=== PATIENT | female | born 1985 | race Caucasian/White ===

== ENCOUNTER 2019-11-24 16:24 | Emergency (ER) | payer OTHER, SELFPAY ==
[2019-11-24 16:28] VITALS: BP 117/77; PULSE 85; RESP 16; TEMP 36.2; O2SAT 98
--- NOTE | 2019-11-24 17:50 | ED.EAR ---
HPI - Ear Problem General Chief complaint: Ear Stated complaint: Ear pain Time Seen by Provider: 11/24/19 17:26 Source: patient Mode of arrival: ambulatory Limitations: no limitations History of Present Illness HPI Narrative: This is a 34 year old female that presents to the ER for bilateral ear irritation x 1 week. Reports itching and abnormal drainage from the ear. Denies any other cold symptoms. Denies fever or erythema. Related Data Allergies Allergy/AdvReac Type Severity Reaction Status Date / Time No Known Allergies Allergy Verified 04/04/19 14:37 Review of Systems Review of Systems: Narrative: CONSTITUTIONAL: Denies fever ENT: Report otalgia. Denies rhinorrhea, congestion, sore throat RESPIRATORY: Denies cough or dyspnea. SKIN: Reports itching. All systems reviewed & are unremarkable except as noted in HPI and below PMFSH Surgical History Surgical History (Updated 11/24/19 @ 17:58 by Tamika Boothe PA-C) History of Family History Family History (Updated 05/02/16 @ 23:21 by DOCTOR UNKNOWN) Sibling Patient's sister is in good health Father Patient's father is Social History Social History (Updated 11/24/19 @ 17:58 by Tamika Boothe PA-C) Smoking status: Current every day smoker Alcohol intake: never Exam Narrative: Exam Narrative: GENERAL: Well-appearing, well-nourished, and in no acute distress. HEAD: Normocephalic, atraumatic. EYES: EOMI. ENT: Nares clear, no rhinorrhea or epistaxis. Mucous membranes moist. Oropharynx without tonsillar hypertrophy exudate or other lesions. Bilateral TMs pearly monreal non-bulging. Bilateral external auditory canals with mild redness and irritation. NECK: Supple. No adenopathy or masses. CHEST: Clear to auscultation. No respiratory distress. No wheezes rales or rhonchi HEART: Regular rate and rhythm. No murmur heard. Normal peripheral pulses. EXTREMITIES: Normal range of motion. No edema. SKIN: Warm, dry, no rash. NEURO: No focal deficits. Alert and oriented x3. PSYCH: Normal mood and affect Course Vital Signs Vital signs: Vital Signs Temperature 97.2 F L 11/24/19 16:28 Pulse Rate 85 11/24/19 16:28 Respiratory Rate 16 11/24/19 16:28 Blood Pressure 117/77 11/24/19 16:28 Pulse Oximetry 98 11/24/19 16:28 Temperature 97.2 F L 11/24/19 16:28 Pulse Rate 85 11/24/19 16:28 Respiratory Rate 16 11/24/19 16:28 Blood Pressure 117/77 11/24/19 16:28 Pulse Oximetry 98 11/24/19 16:28 Medical Decision Making MDM Narrative Medical decision making narrative: Patient presents to the ER for bilateral ear drainage, irritation and itching. She is afebrile and nontoxic appearing. Bilateral external ear canals with mild irritation. She will be started on acetic acid-hydrocortisone drops. She is to follow-up with primary care doctor. She was given warnings to return to the ER Vital Signs Vital Signs: Vital Signs Temperature 97.2 F L 11/24/19 16:28 Pulse Rate 85 11/24/19 16:28 Respiratory Rate 16 11/24/19 16:28 Blood Pressure 117/77 11/24/19 16:28 Pulse Oximetry 98 11/24/19 16:28 Temperature 97.2 F L 11/24/19 16:28 Pulse Rate 85 11/24/19 16:28 Respiratory Rate 16 11/24/19 16:28 Blood Pressure 117/77 11/24/19 16:28 Pulse Oximetry 98 11/24/19 16:28 Critical Care Time Critical Care Time Critical Care Time: No Discharge Plan Discharge Clinical Impression: Otitis externa Qualifiers: Otitis externa type: unspecified type Chronicity: acute Laterality: bilateral Qualified Code(s): H60.503 - Unspecified acute noninfective otitis externa, bilateral Patient Disposition: Home, Self-Care Condition: Stable Instructions: Otitis Externa (ED) Additional Instructions: Return to the emergency department if you experience fever, increasing pain of your ears, swelling of your ears, or any other symptoms that are concerning to you Apply eardrops as prescribed.
== END 2019-11-24 18:00 | disposition home or self-care (01) ==
PROVIDERS: Emergency Provider Emergency Medicine
DX: H60.503 Unspecified acute noninfective otitis externa, bilateral (principal)
CPT/HCPCS: 99283

== ENCOUNTER 2020-09-12 15:52 | Outpatient (CLI) | payer OTHER, SELFPAY ==
--- NOTE | ~2020-09-12 | US_ITS ---
EXAMINATION: US OB <= 14 weeks fetus DATE: 09/12/2020 16:37 INDICATION: First trimester dating TECHNIQUE: Real-time pelvic transabdominal and transvaginal ultrasound was performed. COMPARISON: None. FINDINGS: The uterus measures 10.7 x 5.8 x 7.9 cm. There is an intrauterine gestational sac. A yolk sac is identified. heart motion is identified measuring 163 beats per minute (bpm) by M-mode Do ppler. The crown rump length measures 1.4 cm , which correlates with an estimated gestational a ge of 7 weeks and 5 day(s) (+/-) 5 day(s). The right ovary measures 3.1 x 1.6 x 1.4 cm. The left ovary measures 2.9 x 2.4 x 2.6 cm. There is nor mal vascular flow in the ovaries. There is no free fluid in the pelvis. IMPRESSION: 1. Live intrauterine with an estimated gestational age of 7 weeks and 5 day(s) (+/-) 5 day( s) and an estimated delivery date of 04/26/2021. Reviewed, dictated and finalized at location [facility] IMPRESSION: 1. Live intrauterine with an estimated gestational age of 7 weeks and 5 day(s) (+/-) 5 day(s) and an estimated delivery date of 04/26/2021.
== END 2020-09-12 15:53 | disposition home or self-care (01) ==
PROVIDERS: Visit Provider Obstetrics & Gynecology
DX: Z34.90 Encounter for supervision of normal pregnancy, unspecified, unspecified trimester (principal); Z3A.01 Less than 8 weeks gestation of pregnancy
CPT/HCPCS: 76801

== ENCOUNTER 2021-04-17 11:50 | Inpatient (IN) | payer OTHER, SELFPAY ==
[2021-04-17] VITALS (52 sets, daily range): BP systolic 78–149; BP diastolic 40–126; PULSE 56–108; RESP 12–20; TEMP 36.2–36.3; O2SAT 85–100; BMI 31.1
[2021-04-17 12:15] LABS: Basophils Percent Auto 0.2 % (0.2-1.2); Eosinophils Percent Auto 0.3 % (0-4.4); Hematocrit 38.9 % (37.0-47.0); Hemoglobin 13.2 g/dL (12.0-15.0); Immature Granulocyte Absolute 0.04 K/mm3 (0.00-0.031); Immature Granulocyte Percent A 0.3 % (0-0.5); Lymphocytes Absolute Auto 2.24 K/mm3 (0.9-3.2); Lymphocytes Percent Auto 19.1 % (18.3-44.2); Mean Corpuscular HGB Conc 33.9 g/dl (32-36); Mean Corpuscular Hemoglobin 31.7 pg (26-34); Mean Corpuscular Volume 93.5 fl (80-100); Mean Platelet Volume 11.1 fl (7.4-10.4); Monocytes Absolute Auto 0.7 K/mm3 (0.1-0.6); Monocytes Percent Auto 6.1 % (2.6-8.5); Neutrophils Absolute Auto 8.7 K/mm3 (1.3-6.7); Platelet Count Result 238 k/mm3 (150-375); Red Blood Count 4.16 M/mm3 (4.2-5.4); Red Cell Distribution Width 13.4 % (11.5-14.5); White Blood Count 11.7 K/mm3 (4.5-10.0)
[2021-04-17] MEDS: LACTATED RINGERS 1,000 ML 125 ML IV CONT (12:18)
--- NOTE | 2021-04-17 12:21 | PM.IMHP ---
H&P: HPI History of Present Illness Date/Time: 04/17/21 12:21 35 y/o at 39 2/7 weeks here for repeat with concurrent tubal ligation. History of scar ectopic in past. Also history of right salpingectomy. otherwise uncomplicated. GBS neg. Chief Complaint: Here for c section Review of Systems Review of Systems: All systems reviewed & are unremarkable except as noted in HPI and below PMFSH Past Medical History Medical History (Updated 04/17/21 @ 12:24 by Curtis Bhagat MD) History of ectopic Surgical History Surgical History (Updated 04/17/21 @ 12:24 by Curtis Bhagat MD) History of Family History Family History Sibling Patient's sister is in good health Father Patient's father is Social History Social History Smoking status: Current every day smoker Alcohol intake: never Substance use: never Gender identity (if verbalized by the patient): Female Spiritual care concerns: No Meds Home Medications and Allergies Home Medications Medication Instructions Recorded Confirmed Type PNV cmb#95-ferrous fumarate-FA 1 tablet PO DAILY 04/01/21 04/01/21 History [] Allergies Allergy/AdvReac Type Severity Reaction Status Date / Time No Known Allergies Allergy Verified 04/04/19 14:37 Vital Signs Vital Signs - 24 hr 04/17/21 12:05 04/17/21 12:15 Pulse Rate 103 H 108 H Blood Pressure 125/83 127/80 Exam Const: Orientation/consciousness: patient oriented x3 Other: Well-developed, well-nourished female in no acute distress. Neck: Thyroid: thyroid normal Lymphatic: no lymphadenopathy noted (in neck, axilla or inguinal nodes) Resp: Effort & Inspection: normal respiratory effort Auscultation: clear to auscultation bilaterally Cardio: Rate: regular rate Rhythm: regular rhythm Heart sounds: S1 normal heart sound present and S2 normal heart sound present GI: Other: ABD: Soft, nontender, nondistended, gravid. NST reactive. TOCO: no contractions. No guarding or rebound tenderness. No hepatosplenomegaly. : General: Yes no CVA tenderness Other: Cervix closed, thick Back/Spine/Pelvis: Back: no CVA tenderness Skin: General skin exam: normal color and no rashes or lesions noted Neuro: General: patient oriented x3 Extrem: Other: Extremities: nontender with no edema Psych: Mental Status: mental status grossly normal Affect: normal affect H&P: Results Labs Labs: Short CBC 04/17/21 Range/Units 12:09 WBC 11.7 H (4.5-10.0) K/mm3 Hgb 13.2 (12.0-15.0) g/dL Hct 38.9 (37.0-47.0) % Plt Count 238 (150-375) k/mm3 Assessment and Plan Assessment and plan (1) Unwanted fertility: Code(s): Z30.09 - Encounter for other general counseling and advice on contraception Status: Acute (2) History of : Code(s): Z98.891 - History of uterine scar from previous surgery Status: Acute Assessment and Plan: A: IUP at 39 2/7 weeks with prior , desiring repeat. Also desiring permanent contraception. P: Offered repeat with concurrent tubal ligation. She understands there are temporary methods of contraception available to her. She understands that there are nonsurgical options as well as surgical options. She understands that tubal ligation will render her permanently sterile. She understands that there is a failure rate associated with tubal ligation, as well as an inherent ectopic gestation risk. Furthermore, she understands risks of surgery to include risks of anesthesia, risks of pain, infection, bleeding, blood products, thromboembolic phenomena and damage to adjacent structures such as bowel, bladder, ureters, blood vessels and nerves. She understands all these risks and elects to proceed with surgery. She has recei
--- NOTE | 2021-04-17 12:26 | LDADM ---
This patient, Princess Mullins, was admitted to Labor/Delivery/Recovery 119 on 04/17/21 at 11:50. Plans for scheduled section and tubal ligation, pain management and were discussed with patient. Patient/family oriented to hospital policies and general routines including ID bracelet, bed and alarms, visiting hours, pain management, procedures, bathroom and other care routines, personal items, smoking policy, room service/diet and guest tray routines, security routines, and visiting hours. Patient/Family are encouraged to report perceived risks to care and to ask questions if they do not understand what they are told or what they should do. See OBIX for further documentation.
--- NOTE | 2021-04-17 13:00 | WPDANESEPPF ---
Anes - Initial Pre Proc Eval Procedure: Operation Date: 04/17/21 13:30 Proposed Procedures p Repeat Section with Bilateral Tubal Ligation - Curtis Bhagat MD Date/Time: 04/17/21 13:00 Surgeon: Curtis Bhagat MD Pre Op Diagnosis: Patient Data Age: 35 Gender: F Height: 1.75 m Weight: 95.5 kg Last Vital Signs Pulse 103 H 04/17/21 12:30 BP 123/83 04/17/21 12:30 Allergies Allergy/AdvReac Type Severity Reaction Status Date / Time No Known Allergies Allergy Verified 04/04/19 14:37 Home Medications Medication Instructions Recorded Confirmed Type PNV cmb#95-ferrous fumarate-FA 1 tablet PO DAILY 04/01/21 04/01/21 History [] Laboratory Tests 04/17/21 04/17/21 12:09 12:09 WBC 11.7 K/mm3 H K/mm3 (4.5-10.0) RBC 4.16 M/mm3 L M/mm3 (4.2-5.4) Hgb 13.2 g/dL g/dL (12.0-15.0) Hct 38.9 % % (37.0-47.0) MCV 93.5 fl fl (80-100) MCH 31.7 pg pg (26-34) MCHC 33.9 g/dl g/dl (32-36) RDW 13.4 % % (11.5-14.5) Plt Count 238 k/mm3 k/mm3 (150-375) MPV 11.1 fl H fl (7.4-10.4) Immature Gran % (Auto) 0.3 % % (0-0.5) Neut % (Auto) 74.0 % H % (45.5-73.1) Lymph % (Auto) 19.1 % % (18.3-44.2) Pender % (Auto) 6.1 % % (2.6-8.5) Eos % (Auto) 0.3 % % (0-4.4) Baso % (Auto) 0.2 % % (0.2-1.2) Lymph # (Auto) 2.24 K/mm3 K/mm3 (0.9-3.2) Pender # (Auto) 0.7 K/mm3 H K/mm3 (0.1-0.6) Eos # (Auto) 0.0 K/mm3 K/mm3 (0-0.3) Baso # (Auto) 0.0 K/mm3 K/mm3 (0.0-0.1) Abs Immat Gran (auto) 0.04 K/mm3 H K/mm3 (0.00-0.031) Absolute Neuts (auto) 8.7 K/mm3 H K/mm3 (1.3-6.7) Absolute Nucleated RBC 0.0 K/mm3 K/mm3 (0.0-0.012) Nucleated RBC % 0.0 % % (0.0-0.2) RPR Pending Patient hx anesthesia problems: none Family hx anesthesia problems: none PMFSH Past Medical History Medical History (Updated 04/17/21 @ 12:24 by Curtis Bhagat MD) History of ectopic Surgical History Surgical History (Updated 04/17/21 @ 12:24 by Curtis Bhagat MD) History of Family History Family History Sibling Patient's sister is in good health Father Patient's father is Social History Social History Years smoked: 8 Smoking status: Current every day smoker Tobacco type: cigarettes Alcohol intake: never Substance use: never Gender identity (if verbalized by the patient): Female Spiritual care concerns: No Anes - Eval Final PreProcedure Day of Procedure 04/17/21 13:00 Patient weight: obese Heart: regular rate and rhythm Lungs: clear to auscultation and normal air movement Airway: Mallampati scale class II Neurological: alert and oriented Last oral intake: >/= 8 hours ASA classification: II Emergent: no Anesthetic plan: proceed Anesthesia type and monitoring: regional spinal Informed Consent: The patient's anesthetic plan and its attendant risks and benefits were discussed with the patient/family/POA. Questions were solicited and answers provided to the satisfaction of the patient/family/POA.
--- NOTE | 2021-04-17 13:33 | WPDHPUPDATE1 ---
History and Physical Update Update Date/Time: 04/17/21 13:33 History and Physical has been reviewed, including an updated exam of the patient. There are NO changes in the patient's condition. Risks, benefits, and alternatives have been discussed and questions answered. Patient agrees to proceed with procedure.
[2021-04-17] MEDS: LACTATED RINGERS 1,000 ML 999 ML IV CONT (13:50)
[2021-04-17] MEDS: KETOROLAC 30 MG/ML VIAL (*BKC) IV PUSH (14:38)
--- NOTE | 2021-04-17 15:18 | PM.OBPRVD ---
OB - Delivery Note Procedure Delivery date: 04/17/21 Procedure: Procedures Operation Date: 04/17/21 13:30 <No data on this case meets the specified criteria> Repeat low transverse delivery Left tubal ligation via modified Charbel technique Delivery monitor: external FHT and external uterine Route of delivery: Specimen: Yes (cord blood) Quantitative Blood Loss (ml): 690 Anesthesia type: Spinal Disposition: PACU Complications: None Narrative: Findings: Normal-appearing uterus, bilateral ovaries, left Fallopian tube. The right tube was surgically absent. Procedure: The patient was taken to the operating room where she was prepared and draped in the usual sterile fashion in dorsal supine position with a leftward tilt. She received cefazolin preoperatively. Spinal anesthesia was found to be adequate. A Pfannenstiel skin incision was made along the previous scar line and was carried through to the underlying layer of the fascia. The fascia was incised in the midline and the incision was extended laterally. The fascia was dissected free of the underlying rectus muscles. The rectus muscles were in the midline. The peritoneum was identified, tented up and entered sharply. The peritoneal incision was extended superiorly and inferiorly with good visualization of the bladder. The bladder blade was placed. The vesicouterine peritoneum was identified, tented up and entered sharply. The incision was extended laterally and the bladder flap was developed. The bladder blade was replaced. The uterus was then incised sharply in a transverse fashion along the lower uterine segment. The incision was extended laterally. The infant's head was delivered atraumatically to the sterile field, followed by the body. The nose and mouth were bulb suctioned. After a delay, the cord was clamped and cut. The infant was handed off the field. Cord blood was collected. The placenta was removed manually and was passed off the field. The uterus was exteriorized and cleared of all clots and debris. The uterine incision was reapproximated using 0 Monocryl in a running, locked fashion. A second, imbricating layer of the same suture was placed. Figure of eight sutures of 0 Vicryl were required to achieve excellent hemostasis. The left fallopian tube was then identified by following it out to the fimbriated end. It was grasped in the midportion with a [place] clamp and a loop of tube was ligated with a free tie of 0 plain gut. The tubal segment was then transected and the specimen was passed off to be sent to pathology. Hemostasis was excellent. The uterus was returned the abdomen. The pelvis was irrigated copiously with warmed normal saline. Rigorous hemostasis was assured. The fascial layer was reapproximated using 0 Vicryl in a running fashion. The skin was closed with a running, subcuticular stitch of 4 0 Vicryl. Dermaflex was applied externally. Sponge, lap, needle and instrument counts were correct. The patient was taken to the recovery room in stable condition. The went to the nursery in stable condition. I was present and scrubbed the entire procedure. Baby Date of : 04/17/21 Time of : 14:19 Weeks of gestation at delivery: 39 gender: Male Weight (pounds): 9 Weight (ounces): 1 presentation: vertex Placenta delivery description: Manual Removal and Normal Configuration cord vessel description: 3 Vessels and Delayed Cord Clamping score one minute: 8 score five minutes: 9
--- NOTE | 2021-04-17 15:24 | P.DS_ITS ---
DS: Admitting Diagnosis Admitting Diagnosis Admitting Diagnosis: IUP at 39 2/7 weeks Prior Desired sterility DS: Discharge Diagnosis Discharge Diagnosis (1) Unwanted fertility: Code(s): Z30.09 - Encounter for other general counseling and advice on contraception Status: Acute (2) History of : Code(s): Z98.891 - History of uterine scar from previous surgery Status: Acute (3) Internal and external prolapsed hemorrhoids: Code(s): K64.8 - Other hemorrhoids Status: Acute OB - DS: Summary OB Procedures : None OB Procedures Intrapartum: and Tubal ligation OB Procedures: : None Peripartum Data Procedures: Procedures Operation Date: 04/17/21 13:30 <No data on this case meets the specified criteria> Repeat LTCS with left tubal ligation DS: Data Data Completed and Pending Labs on day of discharge: Labs from last 24 hours 04/17/21 04/17/21 04/17/21 12:09 12:09 12:09 WBC 11.7 H RBC 4.16 L Hgb 13.2 Hct 38.9 MCV 93.5 MCH 31.7 MCHC 33.9 RDW 13.4 Plt Count 238 MPV 11.1 H Immature Gran % (Auto) 0.3 Neut % (Auto) 74.0 H Lymph % (Auto) 19.1 Osborne % (Auto) 6.1 Eos % (Auto) 0.3 Baso % (Auto) 0.2 Lymph # (Auto) 2.24 Osborne # (Auto) 0.7 H Eos # (Auto) 0.0 Baso # (Auto) 0.0 Abs Immat Gran (auto) 0.04 H Absolute Neuts (auto) 8.7 H Absolute Nucleated RBC 0.0 Nucleated RBC % 0.0 RPR Pending Blood Type B Positive Antibody Screen Negative Discharge Plan Discharge Attending physician on discharge: Curtis Bhagat Discharging Clinician: Curtis Bhagat Patient Disposition: Home, Self-Care Activity: may shower, may drive after 2 weeks and pelvic rest Diet: regular Wound Care Instructions: incision open to air Discharge Instructions: Call or return if temperature above 100.4? F, increased abdominal pain, increased vaginal bleeding or any new problems. Patient Instructions: How to Stop Smoking (GEN), Cigarette Smoking and Your Health (GEN), Secondhand Smoke Exposure in Children (GEN) Stand Alone Forms: General Discharge Information Follow-up/Referrals: Curtis Bhagat MD [Physician] - 4 Weeks Discharge Medications: New hydrocodone-acetaminophen 5-325 mg tablet 1 - 2 tablet PO Q6H PRN (Reason: pain) Qty: 30 RF: 0 ibuprofen 600 mg tablet 600 mg PO Q6H PRN (Reason: cramps) Qty: 30 RF: 0 No Action PNV cmb#95-ferrous fumarate-FA [] 28 mg iron- 800 mcg Tablet 1 tablet PO DAILY RF: 0 Date of admission: 04/17/21 11:50 Primary Care Provider: PHYSICIAN,[facility] TECHNICIAN Admitting Provider: Curtis Bhagat Attending physician on admission: Curtis Bhagat Condition: Stable
--- NOTE | 2021-04-17 17:18 | PM.CNGS ---
Assessment and Plan Assessment and plan (1) Internal and external prolapsed hemorrhoids: Code(s): K64.8 - Other hemorrhoids Status: Acute Assessment and Plan: patient has acute hemorrhoidal prolapse. This is a painful condition and is best treated with surgical hemorrhoidectomy. I explained this to the patient and her . The patient very clearly does not want to have surgery even though it is the recommended treatment. I explained the surgery and the fact that there would be some postoperative pain and a period of healing involved. They have plans to return to [place] in 4 weeks. She is not at all interested in surgery even if it is advised. I discussed this with Dr. Bhagat. Will go ahead and treat her with Sitz baths t.i.d., tucks cream pads, Metamucil and mineral oil twice daily. I will follow while she is in the hospital and can follow up as an outpatient. If she should change her mind, we can proceed with hemorrhoidectomy under anesthesia. (2) History of : Code(s): Z98.891 - History of uterine scar from previous surgery Status: Acute Assessment and Plan: and delivery earlier today. History of Present Illness Consult details Consult date: 04/17/21 Reason for consult: other ( painful hemorrhoids) Requesting physician: Curtis Bhagat MD Narrative: patient is a 35-year-old woman who is Filipino and speaks only some Nepali. Her is available and interprets well. history is obtained with both the patient and her as well as the assistance of the nursing staff. Patient had a earlier today. She started having very painful hemorrhoids about 5 days earlier. They were very severe at 1st but then she started putting on an unknown cream and for the last 2 days they have been improving. She has not had any hemorrhoid surgery in the past. I her in consultation regarding her painful hemorrhoids. Review of Systems Review of Systems: All systems reviewed & are unremarkable except as noted in HPI and below Constitutional: Constitutional: Reports as per HPI, Denies chills, Reports difficulty sleeping, Denies fever(s) and Reports poor appetite Gastrointestinal: Gastrointestinal: Reports as per HPI, Reports constipation and Reports other PMFSH Past Medical History Medical History History of ectopic Surgical History Surgical History History of Family History Family History Sibling Patient's sister is in good health Father Patient's father is Social History Social History Years smoked: 8 Smoking status: Current every day smoker Tobacco type: cigarettes Alcohol intake: never Substance use: never Gender identity (if verbalized by the patient): Female Spiritual care concerns: No Meds Home Medications and Allergies Home Medications Medication Instructions Recorded Confirmed Type PNV cmb#95-ferrous fumarate-FA 1 tablet PO DAILY 04/01/21 04/01/21 History [] Allergies Allergy/AdvReac Type Severity Reaction Status Date / Time No Known Allergies Allergy Verified 04/04/19 14:37 Vital Signs Vital Signs - 24 hr 04/17/21 12:05 04/17/21 12:15 04/17/21 12:30 Temperature Pulse Rate 103 H 108 H 103 H Respiratory Rate Blood Pressure 125/83 127/80 123/83 Pulse Oximetry 04/17/21 15:05 04/17/21 15:08 04/17/21 15:10 Temperature 36.2 C L Pulse Rate 89 85 98 Respiratory Rate 13 Blood Pressure 101/54 L 101/54 L 86/65 L Pulse Oximetry 98 98 04/17/21 15:13 04/17/21 15:15 04/17/21 15:18 Temperature Pulse Rate 100 Respiratory Rate Blood Pressure 102/48 L Pulse Oximetry 100 100 04/17/21 15:20 04/17/21 15:
[2021-04-17] MEDS: OXYTOCIN 30 UNITS/NS 500 ML 30 UNITS/500 ML BAG 125 UNITS IV CONT (17:33)
[2021-04-17] MEDS: WITCH HAZEL 40 PADS 1 PAD TOPICAL (17:45)
[2021-04-18 03:26] VITALS: BP 94/52; PULSE 97; RESP 16; TEMP 36.7
[2021-04-18] MEDS: IBUPROFEN 600 MG TABLET PO ×2 (04:45→16:21)
[2021-04-18] MEDS: HYDROcodone/acetaminophen (*CRX) 5-325 MG TABLET 1 TAB PO ×2 (04:45→14:25)
[2021-04-18 05:18] LABS: Basophils Percent Auto 0.2 % (0.2-1.2); Eosinophils Absolute Auto 0.1 K/mm3 (0-0.3); Eosinophils Percent Auto 0.5 % (0-4.4); Hematocrit 34.5 % (37.0-47.0); Hemoglobin 10.9 g/dL (12.0-15.0); Immature Granulocyte Absolute 0.07 K/mm3 (0.00-0.031); Immature Granulocyte Percent A 0.4 % (0-0.5); Lymphocytes Percent Auto 7.9 % (18.3-44.2); Mean Corpuscular HGB Conc 31.6 g/dl (32-36); Mean Corpuscular Hemoglobin 31.2 pg (26-34); Mean Corpuscular Volume 98.9 fl (80-100); Mean Platelet Volume 11.7 fl (7.4-10.4); Monocytes Absolute Auto 0.7 K/mm3 (0.1-0.6); Monocytes Percent Auto 4.5 % (2.6-8.5); Neutrophils Absolute Auto 14.2 K/mm3 (1.3-6.7); Neutrophils Percent Auto 86.5 % (45.5-73.1); Platelet Count Result 179 k/mm3 (150-375); Red Blood Count 3.49 M/mm3 (4.2-5.4); Red Cell Distribution Width 13.5 % (11.5-14.5); White Blood Count 16.4 K/mm3 (4.5-10.0)
[2021-04-18 08:30] VITALS: BP 102/55; PULSE 87; RESP 16; TEMP 37.2; O2SAT 96
[2021-04-18 09:25] LABS: Rapid Plasma Reagin Non-Reactive (NonReactive)
[2021-04-18 09:30] VITALS: PULSE 94; RESP 16; O2SAT 97
[2021-04-18] MEDS: WITCH HAZEL 40 PADS 1 PAD TOPICAL (10:30)
[2021-04-18] MEDS: MINERAL OIL 30 ML UDC 15 ML PO ×2 (10:30→16:22)
[2021-04-18] MEDS: MULTIVIT/MIN/PREN/FOL AC/IRON TABLET 1 TAB PO (10:30)
[2021-04-18] MEDS: PSYLLIUM POWDER PACKET 1 PACKET PO ×2 (10:30→16:22)
[2021-04-18 11:50] VITALS: BP 103/68; PULSE 94; RESP 16; TEMP 37.4; O2SAT 97
--- NOTE | 2021-04-18 12:10 | PC.NURSE ---
Consult with pt., mother reports this is 3rd child to breastfeed. Mother reports she is supplementing after all breastfeedings by choice. Mother reports pain with feeding. Requested mother call out next feeding for assist/review of latching.
--- NOTE | 2021-04-18 12:10 | PC.NURSE ---
Addendum entered by Leelee Gama RN 04/18/21 15:50: time pt seen 1410 Original Note: Mother called out for assist with feeding, mother reports pain with feeding. is able to freely thrust tongue past gum ridge and flange both lips. Skin is intact on both nipples, no redness and bruising noted. Reviewed infant feeding cues, frequencies, duration of feedings, feeding elimination flow sheet, and signs of adequate intake. Demonstrated stimulation techniques to wake infant for feeding. Assisted with infant to breast. Reviewed positioning/alignment in cross cradle, holding breast in ?U? hold and guided asymmetrical latch on. Discussed rational for each. Infant able to latch correctly. Infant nursed eagerly, with steady draws and frequent swallowing noted. Suggested mother stimulate while feeding to increase stimulate, increase intake and to assist with maintaining deep latch. Reviewed signs of a correct latch, effective nursing and suck swallow ratio. Mother reports pain with latch, appears to have a deep latch by all measures of flanged lips, large amount of areola in with latch and rhythmic suckling noted. With in a few minutes mother reports she has no pain. would slip to shallow latch, mother reports tenderness. Demonstrated how to adjust latch more deeply while feeding. Mother reports she can feel change in latch and has slight tenderness. Nipple care reviewed of lanolin after feedings, warm compresses as needed. Stressed the importance of holding breast while feeding to assist maintain deep latch and to keep straight in front of breast. Mother chooses to switch to cradle and reports discomfort. Instructed mother to call out for RN assistance if she is unable to latch for feeding or she has discomfort with nursing.
--- NOTE | 2021-04-18 12:15 | WPDANLDPN2 ---
Anes-Prog Note L&D Date/Time: 04/18/21 12:15 Comfortable throughout: section Neuraxial method: spinal Epidural/Spinal procedure site: clean & non-tender Neuro status: Neuro function grossly intact. Cardiovascular status: normal Respiratory status: normal Airway patency: baseline Mental status: baseline Post-Op hydration status: normal Vital Signs: Last Vital Signs Temp 37.4 C 04/18/21 11:50 Pulse 94 04/18/21 11:50 Resp 16 04/18/21 11:50 BP 103/68 04/18/21 11:50 Pulse Ox 97 04/18/21 11:50 Pain score (VAS): 10/14 I/O: Intake & Output 04/17/21 04/18/21 04/18/21 23:59 07:59 15:59 Intake Total 1300 Output Total 298 1000 Balance -298 300 Post-procedural complaints: none Patient feedback: Patient satisfied with anesthetic care.
--- NOTE | 2021-04-18 12:15 | WPDANLDNPN2 ---
Anes-Prog Note L&D-Neuraxial Date/Time: 04/18/21 12:15 Neuraxial medications: intrathecal PF morphine Opiod-related complaints: none Patient feedback: Patient satisfied with post-operative pain management.
--- NOTE | 2021-04-18 13:08 | PM.OBPNVD ---
OB - PN: Subj Subjective Date/time seen: 04/18/21 13:08 Narrative: Pain OK. Tolerating diet. OB - PN: Obj Data Labs CBC & Chem 7: 04/18/21 03:31 Labs: Laboratory Results - last 24 hr 04/17/21 04/17/21 04/18/21 12:09 12:09 03:31 WBC 16.4 H RBC 3.49 L Hgb 10.9 L Hct 34.5 L MCV 98.9 D MCH 31.2 MCHC 31.6 L RDW 13.5 Plt Count 179 MPV 11.7 H Immature Gran % (Auto) 0.4 Neut % (Auto) 86.5 H Lymph % (Auto) 7.9 L [place] % (Auto) 4.5 Eos % (Auto) 0.5 Baso % (Auto) 0.2 Lymph # (Auto) 1.30 [place] # (Auto) 0.7 H Eos # (Auto) 0.1 Baso # (Auto) 0.0 Abs Immat Gran (auto) 0.07 H Absolute Neuts (auto) 14.2 H Absolute Nucleated RBC 0.0 Nucleated RBC % 0.0 RPR Non-reactive Blood Type B Positive Antibody Screen Negative OB - PN A/P Plan Comments: A: POD#1, doing well. P: Routine care. Exam Narrative: Exam Narrative: AVSS I/O OK ABD soft, nontender, fundus firm. Incision c/d/i. EXT nontender
[2021-04-18 20:55] VITALS: BP 103/65; PULSE 103; RESP 16; TEMP 36.6
[2021-04-19] MEDS: IBUPROFEN 600 MG TABLET PO ×2 (02:15→09:10)
[2021-04-19] MEDS: HYDROcodone/acetaminophen (*CRX) 5-325 MG TABLET 1 TAB PO ×2 (02:15→09:11)
[2021-04-19 09:00] VITALS: PULSE 85; RESP 18; O2SAT 95
[2021-04-19] MEDS: MINERAL OIL 30 ML UDC 15 ML PO (09:09)
[2021-04-19] MEDS: PSYLLIUM POWDER PACKET 1 PACKET PO (09:09)
[2021-04-19] MEDS: MULTIVIT/MIN/PREN/FOL AC/IRON TABLET 1 TAB PO (09:10)
--- NOTE | 2021-04-19 09:30 | PC.NURSE ---
Consult with pt., with as educational sign language interpreter. Mother reports she has slight tenderness with latch to right breast, she is able to latch to left without difficulties or discomfort. Mother states she will put to breast a few minutes each feeding and then supplements due to infant does not act satisfied after . Suggested mother allow to feed at both breasts per feeding to increase intake and stimulate supply. Mother states this is how she breastfed two other children. She will stop supplantation once her milk is in and infant is satisfied after . Offered assist with latch to right breast, mother declines reporting latch is improving. Mother is feeding as required and waking infant to feed if needed. is currently meeting outcomes for weight, output, jaundice and feeding frequencies. Mother states she feels confident to continue current feeding plan at home. Reviewed transition to breast milk, signs of adequate intake, and engorgement/relief. Instructed to call ICP if intake/output less than required. Reviewed regular medications mother is taking. Information provided per Kajal. Reviewed community resources on the [facility] website and in the Mom/Baby guide. Information on outpatient services provided. Mother has no further questions at this time.
[2021-04-19 10:30] VITALS: BP 111/67; PULSE 85; RESP 18; TEMP 36.4; O2SAT 95
--- NOTE | 2021-04-19 12:52 | PM.OBPNVD ---
OB - PN: Subj Subjective Date/time seen: 04/19/21 12:52 Narrative: Pain OK. Tolerating diet. Would like to go home. OB - PN: Obj Data Labs CBC & Chem 7: 04/18/21 03:31 OB - PN A/P Plan Comments: A: POD#2, doing well. P: Home to f/u 4 weeks. Exam Narrative: Exam Narrative: AVSS ABD soft, nontender, fundus firm. Incision c/d/i. EXT nontender
[2021-04-22 09:55] VITALS: BP 130/94; PULSE 79; RESP 20; TEMP 36.6; O2SAT 99
== END 2021-04-19 16:35 | disposition home or self-care (01) | DRG 540 ==
LOC: ANHLDR 15:25 → ANHOB2 17:54
PROVIDERS: Admitting Provider Obstetrics & Gynecology; Visit Provider Obstetrics & Gynecology
PROC: 10D00Z1 Extraction of Products of Conception, Low, Open Approach (ICD-10-PCS; CPT 59514; principal; 2021-04-17 13:30)
DX: O34.211 Maternal care for low transverse scar from previous cesarean delivery (principal); Z37.0 Single live birth; Z3A.39 39 weeks gestation of pregnancy; O99.214 Obesity complicating childbirth; E66.9 Obesity, unspecified; O22.43 Hemorrhoids in pregnancy, third trimester; Z30.2 Encounter for sterilization
CPT/HCPCS: 36415; 85025; 86592; 86850; 86900; 86901; 88302; A9270; J0131; J1885; J2274; J2370; J2405; J2590; J7120

== ENCOUNTER → 2021-05-04 06:38 | Outpatient (CLI) | payer OTHER, SELFPAY ==
[2021-05-04 18:26] LABS: SARS-CoV-2 RNA PCR Negative
== END ==
PROVIDERS: Visit Provider Pediatrics
DX: R68.89 Other general symptoms and signs (principal); Z20.822 Contact with and (suspected) exposure to COVID-19
CPT/HCPCS: C9803; U0003; U0005

== ENCOUNTER 2021-09-18 10:55 | Outpatient (CLI) | payer OTHER, SELFPAY ==
--- NOTE | ~2021-09-18 | XR_ITS ---
EXAMINATION: XR chest 2V 09/18/2021 11:31 INDICATION: Shortness of breath and cough PROCEDURE: 2 view chest COMPARISON: 02/15/2009 FINDINGS: The lungs are clear. The cardiomediastinal silhouette is within normal limits. There are no pleural effusions. There is no pneumothorax suspected. IMPRESSION: 1: NO ACUTE CARDIOPULMONARY DISEASE. Reviewed, dictated and finalized at location A. RAM ATTENDANT
[2021-09-18 13:23] LABS: Hepatitis B Surface Antigen Negative (Negative)
[2021-09-18 13:29] LABS: HAV RESULT Negative (Negative); Hepatitis B Core IgM Result Negative (Negative)
[2021-09-18 13:41] LABS: Hepatitis C Virus Antibody Negative (Negative)
[2021-09-23 07:35] LABS: GGT 17 U/L (3-50)
== END 2021-09-18 10:56 | disposition home or self-care (01) ==
LOC: ANHIMG 11:09
PROVIDERS: PCP Emergency Medicine; Visit Provider Emergency Medicine
DX: R06.02 Shortness of breath (principal); R05.9 Cough, unspecified; R94.5 Abnormal results of liver function studies
CPT/HCPCS: 36415; 71046; 80074; 82977

== ENCOUNTER 2021-09-23 08:03 | Outpatient (CLI) | payer OTHER, SELFPAY ==
--- NOTE | ~2021-09-23 | US_ITS ---
US right upper quadrant DATE: 09/23/2021 08:49 INDICATION: Elevated liver enzymes TECHNIQUE: Real-time imaging of liver, pancreas, gallbladder COMPARISON: None FINDINGS: The pancreatic tail is obscured by bowel gas. The pancreas otherwise appears unremarkable. Normal hepatopedal portal venous flow direction. No hepatic space-occupying mass lesion is evident. There is probable phrygian cap of the gallbladder. Small mobile filling defects of the gallbladder li laura represent gallstones. IMPRESSION: Cholelithiasis Reviewed, dictated and finalized at Location A. Reviewed, dictated and finalized at location B. ER TALLIER IMPRESSION: Cholelithiasis
== END 2021-09-23 08:04 | disposition home or self-care (01) ==
LOC: ANHIMG 08:05
PROVIDERS: PCP Emergency Medicine; Visit Provider Emergency Medicine
DX: R74.8 Abnormal levels of other serum enzymes (principal); K80.20 Calculus of gallbladder without cholecystitis without obstruction
CPT/HCPCS: 76705

== ENCOUNTER 2021-12-05 12:50 | Outpatient (CLI) | payer OTHER, SELFPAY ==
[2021-12-05 14:58] LABS: Alanine Aminotransferase 20 U/L (4-35); Albumin Level 4.7 g/dL (3.5-5.1); Alkaline Phosphatase 103 U/L (38-126); Amylase 61 U/L (30-110); Aspartate Amino Transferase 24 U/L (14-36); Bilirubin,Total 0.5 mg/dL (0.2-1.3); Lipase 118 U/L (23-300)
== END 2021-12-05 12:51 | disposition home or self-care (01) ==
LOC: ANHSURGERY 12:54
PROVIDERS: PCP Emergency Medicine; Visit Provider Surgery
DX: K80.20 Calculus of gallbladder without cholecystitis without obstruction (principal); Z01.818 Encounter for other preprocedural examination
CPT/HCPCS: 36415; 80076; 82150; 83690; 86850; 86900; 86901

== ENCOUNTER 2021-12-11 00:12 | Day surgery (SDC) | payer OTHER, SELFPAY ==
[2021-12-05 13:24] VITALS: BMI 29.2
--- NOTE | 2021-12-05 13:41 | PC.NURSE ---
Report to the Outpatient Waiting Room, entrance under the green pavilion located off [facility], at time _1000 AM on date _12/11/21 . OR Time: _1200 NOON . - You and your visitor will be asked a series of questions to screen for COVID 19 for your protection. - A mask is required within the hospital. Preoperative COVID Testing Requirements: No COVID Test needed if: (proof is required; if not received patient will have Rapid Test prior to entry) - Patient has received COVID Vaccine at least 14 days prior to procedure date or - Patient has positive COVID test result within last 90 days of surgery date. COVID Test needed if above criteria is not met If not COVID vaccinated a COVID test must be conducted within 72 hours of surgery and patient is asked to isolate self from time of testing until procedure. You will go to the [facility] for your COVID testing. The [facility] is located at the corner of [address] [facility]. You will only be called if COVID results are positive and your surgeon may reschedule your elective surgery date. Patients may have clear liquids (water, carbonated beverages, clear teas, apple juice) until 3 hours prior to surgery with a maximum of 20 ounces. - No food from midnight until time of surgery Take the following medications with a SIP of water the morning of surgery: NONE Medications to discontinue per physician ALL VITAMINS 3 DAYS PREOP Date to take last dose_12/07/21 Please no make-up, nail [place] citizen, hairspray, perfume, deodorant, or body powder the day of surgery. No jewelry (including any body piercings) or valuables the day of surgery, leave them at home. Please take a shower or bath the night before, or the morning of, surgery with an antibacterial soap. Wear comfortable, loose fitting clothing. Children are encouraged to wear pajamas. - Jewelry must be removed prior to entering the operating room. Rings and piercings that are not removed may be cut off. - The hospital will not accept responsibility for valuables. - Please leave all valuables, including medications, at home the day of surgery. HIBICLENS SHOWER MORNING OF SURGERY If you are going home after surgery, a licensed regional company truck driver must drive you home. - NO public transportation without another adult. - We recommend that an adult stay with you for 24 hours following discharge. - We also recommend that you do not drive, make important decision, drink alcoholic beverages, or take any drugs that were not prescribed by your health care provider for at least 24 hours after your discharge time. For Pediatric surgeries, we recommend two adults accompany the child home (only one inside the building at this time). One visitor will be allowed to accompany the patient into the hospital. Patients visitor will be instructed to remain with patient at all times or leave the building. We will allow the visitor to come back to the postoperative area when patient is ready. Follow any additional instructions given to you from your surgeon. Telephone instructions given to _PATIENT AND [place] and asked if any additional questions and then verbalized understanding. Patient advised to call surgeon office or pre surgery nurse liaison [phone] if any additional questions.
[2021-12-05 14:15] VITALS: BP 124/74; PULSE 87; RESP 18; TEMP 36.8; O2SAT 99
--- NOTE | 2021-12-05 14:19 | PC.NURSE ---
PT SPEAKS CITIZEN OF [place]. SPEAKS SOME NIUEAN. 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
--- NOTE | 2021-12-10 13:40 | WPDANESEPPF ---
Anes - Initial Pre Proc Eval Procedure: Operation Date: 12/11/21 12:00 Proposed Procedures p Laparoscopic Cholecystectomy, Possible Open - Joe Haro DO Date/Time: 12/10/21 13:40 Surgeon: Joe Haro DO Pre Op Diagnosis: symptomatic cholelithiasis Patient Data Age: 36 Gender: F Height: 1.83 m Weight: 97.8 kg Last Vital Signs Temp 36.8 C 12/05/21 14:15 Pulse 87 12/05/21 14:15 Resp 18 12/05/21 14:15 BP 124/74 12/05/21 14:15 Pulse Ox 99 12/05/21 14:15 Allergies Allergy/AdvReac Type Severity Reaction Status Date / Time No Known Allergies Allergy Verified 12/11/21 09:59 Home Medications Medication Instructions Recorded Confirmed Type ergocalciferol (vitamin D2) 1,250 mcg PO WEEKLY 12/03/21 12/11/21 History Patient hx anesthesia problems: none Family hx anesthesia problems: none Results Review: All pre-operative results and documents have been reviewed as part of the pre-operative evaluation. [facility] Past Medical History Medical History History of ectopic Surgical History Surgical History (Updated 12/10/21 @ 13:40 by Gordy Ivy DO) History of History of tubal ligation Family History Family History Sibling Patient's sister is in good health Father Patient's father is Social History Social History Smoking packs per day: 0.5 Smoking cigarettes per day: 10.0 Years smoked: 15 Smoking pack-years: 7.50 Smoking status: Current every day smoker Tobacco type: cigarettes Alcohol intake: never Substance use: never Living arrangements: with family Gender identity (if verbalized by the patient): Female Spiritual care concerns: No Anes - Eval Final PreProcedure Day of Procedure 12/10/21 13:40 Patient weight: overweight Heart: regular rate and rhythm Lungs: clear to auscultation and normal air movement Airway: Mallampati scale class II Neurological: alert and oriented Last oral intake: >/= 8 hours ASA classification: II Emergent: no Anesthetic plan: proceed Anesthesia type and monitoring: general ETT and standard monitoring Results Review: All pre-operative results and documents have been reviewed as part of the pre-operative evaluation. Informed Consent: The patient's anesthetic plan and its attendant risks and benefits were discussed with the patient/family/POA. Questions were solicited and answers provided to the satisfaction of the patient/family/POA.
[2021-12-11] VITALS (8 sets, daily range): BP systolic 104–147; BP diastolic 66–93; PULSE 64–80; RESP 11–16; TEMP 36.8; O2SAT 98–100
[2021-12-11] MEDS: ACETAMINOPHEN 500 MG TABLET 1000 MG PO (10:24)
[2021-12-11] MEDS: LACTATED RINGERS 1,000 ML 30 ML IV CONT ×2 (10:24→13:00)
[2021-12-11] MEDS: KETOROLAC 15 MG/ML VIAL (*BKC) IV PUSH (10:26)
--- NOTE | 2021-12-11 11:22 | PM.IMHP ---
H&P: HPI History of Present Illness Date/Time: 12/11/21 11:22 Chief Complaint: Right upper quadrant pain Narrative: This is a 36-year-old woman who presents for laparoscopic cholecystectomy. She denies any changes since last seen in the office. Review of Systems Review of Systems: All systems reviewed & are unremarkable except as noted in HPI and below Constitutional: Constitutional: Denies chills, Denies fever(s), Denies headache(s) and Denies weight loss Eyes: Eyes: Denies change in vision ENT: Denies dizziness, Denies headache(s), Denies neck mass and Denies throat swelling Cardiovascular: Cardiovascular: Denies chest pain, Denies lightheadedness and Denies dyspnea Respiratory: Respiratory: Denies cough, Denies dyspnea and Denies wheezing Gastrointestinal: Gastrointestinal: Denies abdominal pain, Denies change in bowel habits, Denies nausea and Denies vomiting Genitourinary: Genitourinary: Denies hematuria and Denies dysuria Musculoskeletal: Musculoskeletal: Reports as per HPI Integumentary/Breasts: Skin/Breast: Reports as per HPI Neurologic: Denies dizziness and Denies headache(s) Allergic/Immunologic: Allergic/Immunologic: Denies throat swelling and Denies wheezing PMFSH Past Medical History Medical History History of ectopic Surgical History Surgical History (Updated 12/10/21 @ 13:40 by Gordy Ivy DO) History of History of tubal ligation Family History Family History Sibling Patient's sister is in good health Father Patient's father is Social History Social History Smoking packs per day: 0.5 Smoking cigarettes per day: 10.0 Years smoked: 15 Smoking pack-years: 7.50 Smoking status: Current every day smoker Tobacco type: cigarettes Alcohol intake: never Substance use: never Living arrangements: with family Gender identity (if verbalized by the patient): Female Spiritual care concerns: No Meds Home Medications and Allergies Home Medications Medication Instructions Recorded Confirmed Type ergocalciferol (vitamin D2) 1,250 mcg PO WEEKLY 12/03/21 12/11/21 History Allergies Allergy/AdvReac Type Severity Reaction Status Date / Time No Known Allergies Allergy Verified 12/11/21 09:59 Vital Signs Vital Signs - 24 hr 12/11/21 10:31 Temperature 36.8 C Pulse Rate 70 Respiratory Rate 16 Blood Pressure 104/66 Pulse Oximetry 98 Exam Const: General: no acute distress and alert Orientation/consciousness: patient oriented x3 HENMT: Head: normocephalic and atraumatic Ears: hearing grossly normal bilaterally General nose exam: Normal nares present Mouth: Yes Normal oral and palatal mucosa present Eyes: Periorbital: periorbital findings normal Sclera: sclerae normal EOM: EOMs intact bilaterally Neck: Neck: normal visual inspection, no lymphadenopathy and trachea midline Chest: Chest palpation & inspection: normal inspection of the chest Resp: Effort & Inspection: normal respiratory effort Auscultation: clear to auscultation bilaterally Cardio: Jugular venous distension: no JVD Rate: regular rate Rhythm: regular rhythm Heart sounds: S1 normal heart sound present and S2 normal heart sound present Peripheral pulses: Peripheral pulses 2+ throughout GI: Inspection: normal to inspection GI Palp: Yes Soft to palpation, No Tenderness to palpation present (GI), No Guarding due to palpation present (GI) and No Rebound tenderness present Percussion: Yes normal to percussion Auscultation: normal bowel sounds : General: Yes no CVA tenderness Back/Spine/Pelvis: Back: no CVA tenderness Neuro: General: patient oriented x3, no focal motor deficits and CN's II-XI intact bilaterally Cognition (Neuro): normal cognition Speech: normal s
--- NOTE | 2021-12-11 11:23 | WPDHPUPDATE1 ---
History and Physical Update Update Date/Time: 12/11/21 11:23 History and Physical has been reviewed, including an updated exam of the patient. There are NO changes in the patient's condition. Risks, benefits, and alternatives have been discussed and questions answered. Patient agrees to proceed with procedure.
[2021-12-11] MEDS: ceFAZolin 2 GM/D5W 50 ML 2 GM/50 ML BAG IVPB (11:56)
[2021-12-11] MEDS: BUPIVACAINE/EPINEPHRINE 0.25% 10 ML VIAL 30 ML INFILTRATE (11:58)
--- NOTE | 2021-12-11 12:53 | W.PM.PROC2 ---
Procedure Note - Detailed Date of Procedure 12/11/21 Pre-op Diagnosis symptomatic cholelithiasis Post-op Diagnosis Same Procedure Performed Laparoscopic Cholecystectomy Surgeon Joe Haro, DO Anesthesia General and Local (0.5% bupivacaine) Indications This is a 36-year-old woman who presented with intermittent right upper quadrant abdominal pain over the past 5-6 months. She did not identify any particular foods that caused her pain. She has recently been and did not notice any definite symptoms during her . She underwent a right upper quadrant ultrasound which showed evidence of cholelithiasis. Discussions were made with the patient about her treatment options and decision was made to proceed with laparoscopic cholecystectomy, possible open. Findings Laparoscopic cholecystectomy was performed. There were a few pericholecystic adhesions but the gallbladder wall appeared normal. The cystic duct appeared normal in size. There were a few small stones within the gallbladder. The gallbladder was removed and sent to the lab for pathology. Description of Procedure Procedure as well as risks, benefits, and alternatives were discussed with patient. Written consent was obtained and placed in chart prior to procedure. The patient was brought back to surgical suite. Patient was placed in supine position on operating table. Time-out was done to confirm patient and procedure. Patient was then intubated by the anesthesia department. Abdomen was prepped and draped in sterile fashion using chlorhexidine prep. 0.5% bupivacaine with epinephrine was infiltrated at each site of incision. A 5 millimeter incision was made near the umbilicus, and a 5 millimeter Optiview trocar was advanced through the abdominal layers under direct visualization. Once inside the abdominal cavity, carbon dioxide was insufflated to create a pneumoperitoneum. The camera was inserted and the abdomen was inspected. No immediate abnormalities were identified. The patient was placed in reverse Trendelenburg position and rotated slightly to the left. An 11 millimeter incision was made in the subxiphoid region, and an 11 millimeter trocar was inserted under direct visualization. Two 5 millimeter incisions were made in the right upper quadrant, and two 5 millimeter trocars were inserted under direct visualization. The gallbladder was identified and grasped at the fundus and retracted superiorly. It was then grasped at the infundibulum retracted laterally. Careful dissection around the neck of the gallbladder was performed using blunt dissection with a [place] grasper and hook electrocautery. The cystic duct was identified, and a window was created behind it. The cystic artery was also identified and a window was created behind it. The critical view of safety was identified, visualizing the cystic duct running directly into the neck of the gallbladder, and the cystic artery running directly into the wall of the gallbladder. A 5 millimeter clip gluing pressman was then used to place 2 clips proximally and 1 clip distally on both the cystic duct and cystic artery. They were then both transected using endoscopic scissors. Once safely away from the skip hepatitis, the gallbladder was dissected free from the liver bed using hook electrocautery. Hemostasis was achieved along the way. The gallbladder was removed completely and then removed through the subxiphoid port. The liver bed was then inspected. Hemostasis appeared adequate, and our clips appeared secure. The area was gently irrigated with sterile saline. No other abnormalities were seen. The patient was flattened out in bed, and 1 final inspection was made around the abdominal cavity. The subxiphoid port was removed, and a Janes Reginald cone was used to approximate the fascia with an 0-Vicryl simple interrupted suture. The remaining ports were then removed under direct visualization, the camera was removed, and the pne
[2021-12-11] MEDS: fentaNYL CITRATE INJ (*CRX) 100 MCG/2 ML VIAL 25 MCG IV PUSH ×2 (13:35→13:51)
[2021-12-11] MEDS: oxyCODONE HCL (*CRX) 5 MG TAB IR PO (14:32)
== END 2021-12-11 15:25 | disposition home or self-care (01) ==
PROVIDERS: PCP Emergency Medicine; Visit Provider Surgery
PROC: 0FT44ZZ Resection of Gallbladder, Percutaneous Endoscopic Approach (ICD-10-PCS; CPT 47562; principal; 2021-12-11 12:00)
DX: K80.10 Calculus of gallbladder with chronic cholecystitis without obstruction (principal); F17.210 Nicotine dependence, cigarettes, uncomplicated
CPT/HCPCS: 47562; 88304; A9270; J0330; J0690; J1100; J1885; J2250; J2405; J2704; J3010; J7030; J7120

== ENCOUNTER 2022-07-17 09:35 | Outpatient (CLI) | payer OTHER, SELFPAY ==
--- NOTE | ~2022-07-17 | XR_ITS ---
EXAMINATION: XR elbow RT min 3V, XR forearm RT 2V DATE: 07/17/2022 10:28 INDICATION: Right elbow and forearm pain TECHNIQUE: 1. Anteroposterior, two oblique and lateral views of the right elbow were obtained. 2. Anteroposterior and lateral views of the right forearm were obtained. COMPARISON: None. FINDINGS: Alignment is normal at the right elbow, wrist and visualized portions of the right hand. No fracture. Joint spaces are normal. No periosteal reaction or cortical erosions. No elbow joint effusion. Soft tissues are unremarkable. IMPRESSION: 1. Negative right elbow and forearm radiographs. Reviewed, dictated and finalized at location B. IMPRESSION: 1. Negative right elbow and forearm radiographs.
[2022-07-17 10:57] LABS: Vitamin D 25 Hydroxy 25.3 ng/mL
[2022-07-17 11:11] LABS: Hepatitis B Surface Antigen Negative (Negative)
[2022-07-17 11:17] LABS: HAV RESULT Negative (Negative); Hepatitis B Core IgM Result Negative (Negative)
[2022-07-17 12:48] LABS: Hepatitis C Virus Antibody Negative (Negative)
== END 2022-07-17 09:36 | disposition home or self-care (01) ==
PROVIDERS: PCP Emergency Medicine; Visit Provider Emergency Medicine
DX: E55.9 Vitamin D deficiency, unspecified (principal); R94.5 Abnormal results of liver function studies
CPT/HCPCS: 36415; 73080; 73090; 80074; 82306

== ENCOUNTER 2022-10-27 12:01 | Outpatient (CLI) | payer OTHER, SELFPAY ==
--- NOTE | ~2022-10-27 | MM_ITS ---
EXAMINATION: MM diagnostic haja BI w ramsey HISTORY: Lump lower inner right breast, treated with antibiotics TECHNIQUE: ML, MLO and CC 3-D tomosynthesis images of both breasts were performed and synthetic 2-D i mages were generated. CAD analysis was submitted and interpreted. COMPARISON: None BREAST PARENCHYMAL COMPOSITION: The breasts are almost entirely fatty. FINDINGS: No suspicious mass or architectural distortion, malignant calcification, skin thickening or retraction is detected. IMPRESSION: 1. No mammographic evidence of malignancy 2. Routine mammographic screening beginning at age 40 is recommended BI-RADS Category 1: Negative Reviewed, dictated and finalized at location A. COMPANY TRUCK DRIVER
== END 2022-10-27 12:02 | disposition home or self-care (01) ==
LOC: ANHIMG 12:02
PROVIDERS: PCP Emergency Medicine; Visit Provider Emergency Medicine
DX: N63.14 Unspecified lump in the right breast, lower inner quadrant (principal)
CPT/HCPCS: 77062; 77066; G0279

== ENCOUNTER 2023-03-09 09:31 | Outpatient (CLI) | payer OTHER, SELFPAY ==
[2023-03-09 10:20] LABS: Hematocrit 44.7 % (37.0-47.0); Hemoglobin 15.1 g/dL (12.0-15.0); Mean Corpuscular HGB Conc 33.8 g/dl (32-36); Mean Corpuscular Hemoglobin 32.3 pg (26-34); Mean Corpuscular Volume 95.5 fl (80-100); Mean Platelet Volume 11.1 fl (7.4-10.4); Platelet Count Result 208 k/mm3 (150-375); Red Blood Count 4.68 M/mm3 (4.2-5.4); Red Cell Distribution Width 11.9 % (11.5-14.5); White Blood Count 7.4 K/mm3 (4.5-10.0)
[2023-03-09 10:40] LABS: Alanine Aminotransferase 18 U/L (6-35); Albumin Level 4.3 g/dL (3.5-5.1); Alkaline Phosphatase 78 U/L (38-126); Anion Gap 6 mmol/L (8-16); Aspartate Amino Transferase 19 U/L (14-36); Bilirubin,Total 0.5 mg/dL (0.2-1.3); Blood Urea Nitrogen 10 mg/dL (7-17); Calcium 8.8 mg/dL (8.4-10.2); Carbon Dioxide 26 mmol/L (22-30); Chloride 106 mmol/L (98-107); Cholesterol 146 mg/dL (0-200); Estimated Glomerular Filt Rate > 60; Glucose 102 mg/dL (65-110); HDL Direct 39 mg/dL; Potassium 4.3 mmol/L (3.4-5.0); Sodium 138 mmol/L (137-145); Triglycerides 131 mg/dL (<150)
[2023-03-09 10:52] LABS: LDL Cholesterol Direct 84 mg/dL
[2023-03-09 11:05] LABS: Free T4 Free Thyroxine 1.02 ng/mL (0.78-2.19); Vitamin D 25 Hydroxy 21.6 ng/mL
== END 2023-03-09 09:32 | disposition home or self-care (01) ==
PROVIDERS: PCP Emergency Medicine; Visit Provider Emergency Medicine
DX: E78.5 Hyperlipidemia, unspecified (principal); E55.9 Vitamin D deficiency, unspecified; E66.9 Obesity, unspecified
CPT/HCPCS: 36415; 80053; 80061; 82306; 84439; 84443; 85027

== ENCOUNTER 2023-09-09 14:46 | Outpatient (CLI) | payer OTHER, SELFPAY ==
[2023-09-09 15:19] LABS: Hematocrit 42.4 % (37.0-47.0); Hemoglobin 14.6 g/dL (12.0-15.0); Mean Corpuscular HGB Conc 34.4 g/dl (32-36); Mean Corpuscular Hemoglobin 32.4 pg (26-34); Mean Corpuscular Volume 94.2 fl (80-100); Mean Platelet Volume 10.9 fl (7.4-10.4); Platelet Count Result 241 k/mm3 (150-375); Red Cell Distribution Width 11.6 % (11.5-14.5)
[2023-09-09 15:20] LABS: Appearance Urine Clear (Clear); Bacteria Urine None Seen /hpf; Bilirubin Urine Negative (Negative); Blood Urine 1+ (Negative); Color Urine Yellow (Yellow); Glucose Urine UA Negative (Negative); Ketones Urine Negative (Negative); Leukocyte Esterase Ur Negative LEU/UL (NEGATIVE); Nitrate Urine Negative (Negative); Non Pathogenic Casts 0-2; Protein Urine Negative (Negative); RBC Urine 0-2 /hpf (0-2); Specific Grav Ur 1.013 (1.001-1.035); Squamous Epithelial Cell Urine Occasional /hpf (Few); Urobilinogen Urine 0.2 mg/dL (<2.0); WBC Urine 0-5 /hpf (0-3); pH Urine 5.5 (5.0-9.0)
[2023-09-09 15:32] LABS: Alanine Aminotransferase 17 U/L (6-35); Albumin Level 4.2 g/dL (3.5-5.1); Alkaline Phosphatase 92 U/L (38-126); Anion Gap 7 mmol/L (8-16); Aspartate Amino Transferase 20 U/L (14-36); Bilirubin,Total 0.5 mg/dL (0.2-1.3); Blood Urea Nitrogen 5 mg/dL (7-17); Calcium 8.9 mg/dL (8.4-10.2); Carbon Dioxide 25 mmol/L (22-30); Chloride 105 mmol/L (98-107); Cholesterol 135 mg/dL (0-200); Estimated Glomerular Filt Rate > 60; Glucose 81 mg/dL (65-110); HDL Direct 41 mg/dL; Potassium 3.9 mmol/L (3.4-5.0); Sodium 137 mmol/L (137-145); Triglycerides 101 mg/dL (<150)
[2023-09-09 15:43] LABS: LDL Cholesterol Direct 74 mg/dL
[2023-09-09 15:47] LABS: Add Urine Microscopic? YES
[2023-09-09 16:00] LABS: Hemoglobin A1C 5.3 % (<5.7)
[2023-09-09 16:36] LABS: Free T4 Free Thyroxine 1.34 ng/mL (0.78-2.19); Vitamin D 25 Hydroxy 16.5 ng/mL
[2023-09-09 19:01] LABS: Creatinine Urine 95.2 mg/dL
[2023-09-09 19:05] LABS: MALB Creatinine Ratio 7.8 mg/g (0-30); Microalbumin Urine Random 7.4 mg/L (0-16.7)
== END 2023-09-09 14:47 | disposition home or self-care (01) ==
LOC: ANHLAB 14:49
PROVIDERS: PCP Emergency Medicine; Visit Provider Emergency Medicine
DX: E55.9 Vitamin D deficiency, unspecified (principal); N39.0 Urinary tract infection, site not specified; R94.5 Abnormal results of liver function studies; Z00.00 Encounter for general adult medical examination without abnormal findings
CPT/HCPCS: 36415; 80053; 80061; 81001; 82043; 82306; 83036; 84439; 84443; 85027; 87077; 87086; 87088; 87186